=== PATIENT | female | born 2000 | race Caucasian/White ===

== ENCOUNTER 2022-09-06 14:49 | Emergency (ER) | payer OTHER, SELFPAY ==
[2022-09-06 14:55] VITALS: BP 143/92; PULSE 103; RESP 14; TEMP 37.1; O2SAT 97
--- NOTE | 2022-09-06 15:07 | EXP.UTC ---
Discharge Plan Disposition Patient Disposition: Home, Self-Care Condition: Good Prescriptions Prescriptions: New azithromycin [Zithromax Z-Angel] 250 mg tablet See Rx Instructions .ROUTE .COMPLEX 5 Days Qty: 6 0RF Rx Instructions: For 250 mg dose pack: take 500 mg today (day 1), then 250 mg for 4 days (days 2-5) No Action norelgestromin-ethin.estradiol 1 EACH patch weekly 1 patch TD WEEKLY Label Comments: APPLY 1 PATCH TOPICALLY TO SKIN DIRECTED ONCE WEEKLY Referrals Follow up/Referrals: Provider,Referral, MD [Primary Care Provider] - See instructions Activity Restrictions/Add. Instructions Additional Instructions/Restrictions: *Monitor Temp, Over the counter Motrin or Tylenol as directed/as needed Tylenol every 4 hours and Motrin every 6 hours (as long as your family doctor has told you that you can take it) for fever or pain. and straight to ER if unable to lower temp less than 101.0 after medication given *Warm salt water gargles may help to soothe the throat *Throat Lozenges? *Warm fluids like tea with honey may help to soothe the throat? *Sleep elevated *Humidifier/Vaporizer Over the counter cough medication that your OBGYN has recommended Your throat swab was sent for culture. Those results are typically sent to your primary care. Be sure to follow up in 2-3 days with your family doctor/primary care physician if no improvement so they can review those result and treat if necessary. If you don?t have a primary care doctor, I recommend you get one but in the mean time, you will have to return to a walk in clinic Follow up IMMEDIATELY for new or worsening symptoms or no Noticeable improvement over the next 48-72 hours. 911 for difficulty breathing or swallowing Clinical Impressions Clinical Impression: Sinusitis Instructions Patient Instructions: DI for Sinusitis, Sinusitis Discharge ED Provider: Renata Jordan [facility] [place] General Stated complaint: Cough, sore throat Mode of Arrival: Ambulatory Source of Information: Patient Limitations: No Limitations Time Seen by Provider: 09/06/22 15:07 Description of Symptoms (Recalled from Triage Doc. by RN): PATIENT C/O COUGH AND WHEEZING FOR THE LAST FEW DAYS HEENT Symptoms (Recalled from RN notes): No Resp Symptoms (Recalled from RN notes): Yes Skin Symptoms (Recalled from RN notes): No MS Symptoms (Recalled from RN notes): No Functional Status (Recalled from RN notes): WNL History of Present Illness Provider Complaint: Patient states that for the last several days she has been having chest congestion,cough, sore throat, sinus congestion and pressure and feels like it is draining in the back of her throat States that she woke up the last couple of nights coughing and felt wheezy States that today her sinus pressure was worse so she came in States that she is 23wks OB Related Data Home Medications Medication Instructions Recorded Confirmed norelgestromin 150 mcg-e.estradiol 1 patch TD WEEKLY control 04/27/19 04/27/19 35 mcg/24 hr weekly transderm patch Previous Rx's Medication Instructions Recorded azithromycin 250 mg tablet See Rx Instructions PO .COMPLEX 5 09/06/22 (Zithromax Z-Angel) days #6 tabs Allergies Allergy/AdvReac Type Severity Reaction Status Date / Time No Known Allergies Allergy Verified 04/27/19 20:22 Worker's Comp Is this a Worker's Comp case?: No [facility] Disclaimer: The information contained in this section may have been updated after the patient was seen, as this information can be updated by other users. Social History Smoking Status: Unknown if ever smoked alcohol intake: never current occupational status: student Travel in the last 8 weeks: None housing: house ROS Obtained: Yes All systems reviewed & no additional complaints except as documented and Yes Systems reviewed as appropriate & no additional complaints except as documented Constitutio
[2022-09-06 15:09] VITALS: BP 143/92; PULSE 103; RESP 14; TEMP 37.1; O2SAT 97
[2022-09-06 15:16] LABS: UTC Strep Screen (Rapid) Negative (Negative)
== END 2022-09-06 15:24 | disposition home or self-care (01) ==
PROVIDERS: Emergency Provider Nurse Practitioner
DX: O99.512 Diseases of the respiratory system complicating pregnancy, second trimester (principal); J01.90 Acute sinusitis, unspecified; R05.1 Acute cough; Z3A.21 21 weeks gestation of pregnancy
CPT/HCPCS: 87880; 99212; 99214; G0463